=== PATIENT | male | born 1935 | race Asian ===

== ENCOUNTER 2017-11-20 09:31 | Inpatient (IN) | payer OTHER ==
[~2017-11-20] VITALS: Ht 167.6 cm; Wt 64.0 kg
[2017-11-20 11:29] LABS: BASOPHIL % 0.8 % (0-2); PLATELET COUNT 219 x10^3mcL (130-400); RED CELL DISTRIBUTION WIDTH 14.5 % (11.5-14.5)
[2017-11-20 11:35] LABS: CALCIUM 8.9 mg/dL (8.5-10.1); CARBON DIOXIDE 27.4 mmol/L (21-32); CHLORIDE SERUM 104 mmol/L (98-107); CREATININE SERUM 1.8 mg/dL (0.7-1.3); GLUCOSE SERUM 94 mg/dL (74-106); POTASSIUM SERUM 4.5 mmol/L (3.5-5.1); SODIUM SERUM 140 mmol/L (136-145)
[2017-11-20 11:49] LABS: ALBUMIN 3.9 g/dL (3.4-5.0); ALKALINE PHOSPHATASE 76 U/L (46-116); ALT/SGPT 26 U/L (16-63); AST/SGOT 28 U/L (15-37); BILIRUBIN TOTAL 0.8 mg/dL (0.20-1.00); TOTAL PROTEIN, SERUM 7.7 g/dL (6.4-8.2)
[2017-11-20 12:38] LABS: microscopic required? YES; urine erythrocyte TRACE (NEGATIVE)
[2017-11-20] MEDS ORDERED: HYDRALAZINE HCL25 MG (13:24)
[2017-11-20] MEDS ORDERED: ISOSORBIDE MONO60 MG PO (13:25)
[2017-11-20] MEDS ORDERED: PEPCID40 MG PO (13:25)
[2017-11-20] MEDS ORDERED: CARVEDILOL6.25 M1 PO (13:25)
[2017-11-20] MEDS ORDERED: LASIX20 MG (13:26)
[2017-11-20] MEDS ORDERED: ALLOPURINOL300 M1 PO (13:26)
[2017-11-20] MEDS ORDERED: FERROUS SULFAT325 M2 PO (13:26)
[2017-11-20] MEDS ORDERED: ASPIR 8181 MG PO (13:27)
[2017-11-20 13:59] LABS: MAGNESIUM 2.3 mg/dL (1.8-2.4); PHOSPHOROUS 3.2 mg/dL (2.5-4.9)
[2017-11-20 14:00] LABS: CHOLESTEROL/HDL RATIO 2.2
[2017-11-20 14:49] VITALS: Ht 167.6 cm; Wt 64.0 kg
[2017-11-20 14:54] VITALS: BP 173/69
[2017-11-20 15:15] VITALS: BP 156/73
[2017-11-20 15:30] VITALS: BP 139/83
[2017-11-20 18:16] VITALS: BP 121/61
[2017-11-21 05:42] VITALS: BP 148/63
[2017-11-21 07:21] LABS: BASOPHIL % 1.5 % (0-2); PLATELET COUNT 217 x10^3mcL (130-400)
[2017-11-21 07:22] LABS: RED CELL DISTRIBUTION WIDTH 14.7 % (11.5-14.5)
[2017-11-21 07:57] LABS: CALCIUM 9.2 mg/dL (8.5-10.1); CARBON DIOXIDE 28.9 mmol/L (21-32); CHLORIDE SERUM 106 mmol/L (98-107); CREATININE SERUM 1.8 mg/dL (0.7-1.3); GLUCOSE SERUM 88 mg/dL (74-106); MAGNESIUM 2.3 mg/dL (1.8-2.4); PHOSPHOROUS 3.4 mg/dL (2.5-4.9); POTASSIUM SERUM 5.1 mmol/L (3.5-5.1); SODIUM SERUM 143 mmol/L (136-145)
[2017-11-21 09:39] VITALS: BP 165/55
[2017-11-21 10:40] VITALS: BP 142/60
[2017-11-21 10:58] VITALS: BP 142/60
[2017-11-21] MEDS ORDERED: CARVEDILOL6.25 M1 PO (11:39)
[2017-11-21] MEDS ORDERED: ISOSORBIDE MONO60 MG PO (11:39)
== END 2017-11-21 12:00 | disposition home or self-care (01) | DRG 140 ==
LOC: ED 09:31 → DU 12:59
PROVIDERS: Emergency Medicine; Family Medicine Sports Medicine
DX: J44.9 Chronic obstructive pulmonary disease, unspecified (principal); N17.0 Acute kidney failure with tubular necrosis; I25.10 Atherosclerotic heart disease of native coronary artery without angina pectoris; I42.9 Cardiomyopathy, unspecified; N18.9 Chronic kidney disease, unspecified; I12.9 Hypertensive chronic kidney disease with stage 1 through stage 4 chronic kidney disease, or unspecified chronic kidney disease; R31.9 Hematuria, unspecified; N28.89 Other specified disorders of kidney and ureter; M10.9 Gout, unspecified; Z95.0 Presence of cardiac pacemaker; Z79.82 Long term (current) use of aspirin; Z79.899 Other long term (current) drug therapy
CPT/HCPCS: 83880; 84439; 85378; 94150; J0360; J7030; J7620; Q0092